=== PATIENT | male | born 1950 | race Caucasian/White ===

== ENCOUNTER 2023-03-14 16:43 | Emergency (ER) | payer OTHER, MEDICARE ==
[2023-03-14 17:09] VITALS: TEMP 98.2; BMI 28.7
[2023-03-14] MEDS ORDERED: ONDANSETRON 4 MG/2 ML VIAL IVPUSH ONE ×2 (17:35→20:25)
[2023-03-14] MEDS ORDERED: FAMOTIDINE 20 MG/50 ML IVPB 20 MG/50 ML MG IVPB ONE ×2 (17:35→17:36)
[2023-03-14] MEDS ORDERED: SODIUM CHLORIDE 0.9% 500 ML INFUS.BAG IV ONE (17:35)
[2023-03-14] MEDS ORDERED: ACETAMINOPHEN 1000 MG/100 ML BAG IVPB ONE (17:35)
[2023-03-14] MEDS ORDERED: ONDANSETRON 4 MG/2 ML VIAL ONE ×2 (17:36→20:27)
[2023-03-14] MEDS ORDERED: ACETAMINOPHEN INJECTION 100 ML IVPB ONE (17:36)
[2023-03-14 17:52] LABS: INR 1.29 (0.83-1.09); PROTHROMBIN TIME (PATIENT) 14.9 SEC (9.7-13.0)
[2023-03-14 17:55] LABS: ACTIVATED PTT 35.6 SECONDS (25.2-36.5)
[2023-03-14 17:57] LABS: HEMATOCRIT 36.8 % (35.4-49); HEMOGLOBIN 12.5 G/dL (11.7-16.9); MCH 30.1 pg (25.7-33.7); MEAN CELL VOLUME 88.5 fl (80-96); MEAN PLT VOLUME 7.6 fl (7.5-11.1); RBC 4.16 10^6/uL (4.00-5.60); RDW 13.9 % (11.9-15.9); WHITE BLOOD COUNT 13.9 10^3/uL (4.0-10.8)
[2023-03-14 18:04] LABS: ALBUMIN 4.4 g/dl (3.4-5.0); BILIRUBIN,TOTAL 1.5 mg/dl (0.2-1); BLOOD UREA NITROGEN 16.8 mg/dl (7-18); CALCIUM 10.1 mg/dl (8.5-10.1); CREATININE 1.2 mg/dl (0.6-1.3); MAGNESIUM 1.6 mg/dL (1.8-2.4); POTASSIUM 3.8 mmol/L (3.5-5.1); SGOT/AST 20.8 U/L (15-37); SGPT/ALT 19.2 U/L (7-52); TOT PROT 6.5 g/dl (6.4-8.2)
[2023-03-14 18:55] LABS: PLATELET ESTIMATE ADEQUATE
[2023-03-14] MEDS ORDERED: MAGNESIUM SULF 50% (8.12 MEQ/2 ML-1 GM VIAL) IVPB ONE (18:56)
[2023-03-14] MEDS ORDERED: MAGNESIUM SULFATE IN WATER 2 GM/50 ML IVPB IVPB ONE (19:00)
[2023-03-14 19:52] VITALS: BP 132/85; PULSE 83; RESP 18
[2023-03-14] MEDS ORDERED: METOCLOPRAMIDE HCL INJECTION 10 MG/2 ML VIAL IVPB ONE (22:01)
[2023-03-14] MEDS ORDERED: METOCLOPRAMIDE HCL INJECTION 10 MG/2 ML VIAL ONE (22:07)
== END 2023-03-14 22:31 | disposition home or self-care (01) ==
LOC: FER 16:43
PROC: 3E033GC Introduction of Other Therapeutic Substance into Peripheral Vein, Percutaneous Approach (ICD-10-PCS; principal; 2023-03-14)
PROC: 3E033NZ Introduction of Analgesics, Hypnotics, Sedatives into Peripheral Vein, Percutaneous Approach (ICD-10-PCS; 2023-03-14)
PROC: 3E033GC Introduction of Other Therapeutic Substance into Peripheral Vein, Percutaneous Approach (ICD-10-PCS; 2023-03-14)
PROC: 3E033GC Introduction of Other Therapeutic Substance into Peripheral Vein, Percutaneous Approach (ICD-10-PCS; 2023-03-14)
PROC: 3E033GC Introduction of Other Therapeutic Substance into Peripheral Vein, Percutaneous Approach (ICD-10-PCS; 2023-03-14)
PROC: 3E033GC Introduction of Other Therapeutic Substance into Peripheral Vein, Percutaneous Approach (ICD-10-PCS; 2023-03-14)
DX: R10.84 Generalized abdominal pain (principal); R19.7 Diarrhea, unspecified; K52.9 Noninfective gastroenteritis and colitis, unspecified; R11.2 Nausea with vomiting, unspecified; R00.0 Tachycardia, unspecified
CPT/HCPCS: 36415; 74177-TC; 76705-TC; 80053; 81003; 81015; 83605; 83690; 83735; 84484; 85027; 85610; 85730; 87086; 93005; 99285-25; Q9967